=== PATIENT | male | born 1995 | race American Indian/Alaskan Native ===

== ENCOUNTER 2017-08-23 21:24 | Emergency (ER) | payer SELFPAY ==
[2017-08-23 22:31] VITALS: BP 133/67
== END 2017-08-24 01:50 | disposition left against medical advice (07) ==
LOC: ED 21:24
DX: R21 Rash and other nonspecific skin eruption (principal); Z53.21 Procedure and treatment not carried out due to patient leaving prior to being seen by health care provider